=== PATIENT | female | born 1960 | race Caucasian/White ===

== ENCOUNTER → 2022-11-08 | Outpatient (CLI) | payer BC ==
--- NOTE | 2022-11-08 08:34 | MM ---
Reason for Exam: Screening (asymptomatic). Patient History: Menarche at age 15. First Full-Term at age 23. Postmenopausal. Mother had breast cancer, age 55. Risk Values: Bronwyn 5 year model risk: 2.7%. NCI Lifetime model risk: 11.8%. Prior Study Comparison: No prior studies available for comparison. Tissue Density: The breast tissue is heterogeneously dense. This may lower the sensitivity of mammography. Findings: Analyzed By CAD. 1.3 cm spiculated mass upper outer left breast 7.4 cm from the nipple is felt to reflect malignancy until proven otherwise. There may be a smaller adjacent lesion 7.7 cm from the nipple. Additional views and ultrasound recommended. Nodular density upper outer right breast 7.9 cm from the nipple requires additional evaluation as well. Overall Assessment: Incomplete: need additional imaging evaluation, BI-RAD 0 Management: Diagnostic Mammogram of both breasts. A clinical breast exam by your physician is recommended on an annual basis and results should be correlated with mammographic findings. Electronically signed and approved by: Clark Zuleta M.D. Radiologis
== END | disposition home or self-care (01) ==
LOC: RADMAMWWP 07:03
PROVIDERS: ATTEND Family Medicine
DX: Z12.31 Encounter for screening mammogram for malignant neoplasm of breast (principal); Z78.0 Asymptomatic menopausal state; Z80.3 Family history of malignant neoplasm of breast
CPT/HCPCS: 77067

== ENCOUNTER → 2022-11-15 | Outpatient (CLI) | payer BC ==
--- NOTE | 2022-11-15 07:59 | MM ---
Reason for Exam: Additional evaluation requested from abnormal screening. Last screening mammogram was performed less than 1 month ago. Patient History: Menarche at age 15. First Full-Term at age 23. Postmenopausal. Patient has history of breast feeding. Mother had breast cancer, age 55. Risk Values: Bronwyn 5 year model risk: 2.7%. NCI Lifetime model risk: 11.8%. Prior Study Comparison: 11/08/2022 Bilateral MG screening mammo w CAD, [facility]. Tissue Density: The breast tissue is heterogeneously dense. This may lower the sensitivity of mammography. Findings: Analyzed By CAD. Areas of concern do not go completely away on the additional views. Prominent asymmetric density subareolar region right breast also noted. Overall Assessment: Incomplete: need additional imaging evaluation, BI-RAD 0 Management: Diagnostic Breast Ultrasound of both breasts. Bilateral breast ultrasound. Electronically signed and approved by: Iraj Alves M.D.
--- NOTE | 2022-11-15 08:27 | USB ---
Reason for Exam: Additional evaluation requested from abnormal screening. Patient History: Menarche at age 15. First Full-Term at age 23. Postmenopausal. Patient has history of breast feeding. Mother had breast cancer, age 55. Risk Values: Bronwyn 5 year model risk: 2.7%. NCI Lifetime model risk: 11.8%. Technique: Method: Targeted. Prior Study Comparison: 11/08/2022 Bilateral MG screening mammo w CAD, [facility]. Findings: The upper outer quadrant of both breasts, the axilla of both breasts and the retroareolar of both breasts were scanned. Right breast shows a 6 x 4 x 5 mm thin-walled cyst 10:00 position 7 cm distance from nipple at the area of mammogram concern. Prominent ducts are seen at level of the nipple corresponding to mammogram. Right axilla shows no suspicious abnormality. Left breast shows 2 irregular heterogeneous hypoechoic areas one at 2:00 position measuring 1.1 x 1.7 cm with posterior shadowing and ill-defined borders with superficial vascularity 7 cm distance from nipple and near this level similar irregular heterogeneous hypoechoic area or lesion measuring 1.8 x 1.6 cm with posterior shadowing and superficial vascularity at 3:00 position 7 cm distance from nipple. These lesions are in close proximity on image 2829 and may be one single larger lesion. Subcentimeter lymph node in the left axilla shows eccentric cortical thickening over 3 mm making suspicious. Overall Assessment: Suspicious, BI-RAD 4 Management: Ultrasound Core Biopsy of the left breast. Ultrasound-guided biopsy. Results were given to the patient verbally at the time of exam. Electronically signed and approved by: Iraj Alves M.D.
== END | disposition home or self-care (01) ==
LOC: RADMAMWWP 06:47
PROVIDERS: ATTEND Family Medicine
DX: R92.8 Other abnormal and inconclusive findings on diagnostic imaging of breast (principal); Z78.0 Asymptomatic menopausal state; Z80.3 Family history of malignant neoplasm of breast
CPT/HCPCS: 77066

== ENCOUNTER → 2022-11-25 | Day surgery (SDC) | payer BC ==
--- NOTE | 2022-12-02 13:11 | MM ---
Reason for Exam: Post Procedure Mammogram. Last screening mammogram was performed less than 1 month ago. Patient History: Menarche at age 15. First Full-Term at age 23. Postmenopausal. Patient has history of breast feeding. Mother had breast cancer, age 55. Risk Values: Bronwyn 5 year model risk: 2.7%. NCI Lifetime model risk: 11.8%. Prior Study Comparison: 11/08/2022 Bilateral MG screening mammo w CAD, [facility]. 11/15/2022 Bilateral MG work up mamm w CAD BILAT, [facility]. 11/15/2022 Bilateral US breast workup limited [facility]. Tissue Density: Left: The breast tissue is heterogeneously dense. This may lower the sensitivity of mammography. Pathology Description: Location: axilla. Marker Left Behind. Needle Type: Bard 14g x 10cm Cores: 2 Gauge: 14 Pathology Description: Location: 3 o'clock. Marker Left Behind. Needle Type: Celero Cores: 2 Gauge: 12 Pathology Description: Location: 2 o'clock. Marker Left Behind. Needle Type: Celero Cores: 2 Gauge: 12 The procedure of ultrasound guided core biopsy was explained to the patient. Benefits, alternatives, and risks were discussed. An informed consent was then obtained. The patient was placed in supine positioning for imaging and for the procedure. Preprocedure ultrasound redemonstrates vague irregular hypoechoic shadowing mass at 2:00 position 7 cm distance from nipple and a larger heterogeneous hypoechoic irregular shadowing mass near this level at 3:00 position along with subcentimeter lymph node in the left axilla with perhaps slight eccentric cortical thickening. The overlying skin was prepped and draped in usual sterile fashion. Lidocaine is used as anesthetic into the skin and subcutaneous tissue. Lidocaine with epinephrine is used as anesthetic into the deeper tissue up to areas of concern in the left breast. Under ultrasound guidance, a vacuum assisted biopsy gun device was used to obtain 2 core samples in the 2:00 and 3:00 lesions. Following this, a biopsy clip was left in each lesion. Under ultrasound guidance, a 14-gauge Bard device was used to obtain 2 core samples in the slightly suspicious left axillary lymph node. Following this a biopsy clip was left in the sampled left axillary lymph node. The patient tolerated the procedure well without any immediate complication. The patient was kept in the radiology department for short stay after the procedure and then discharged home in stable condition. Postprocedure mammogram: The patient was transferred to mammography for physician ordered post procedure mammogram for clip placement verification. All 3 clips are successfully deployed seen on the true lateral view. The 2 lesions at 2:00 and 3:00 position are within 1.4 cm of each other suggesting they are likely one larger lesion. This was suspected prior to procedure but unable to definitively show connection via ultrasound. Impression: Successful, uncomplicated ultrasound guided core biopsy of 3 areas of concern in the left breast, full pathology results to follow. High index of suspicion noted at time of procedure. Pathology Results: Result: Malignant, Invasive ductal carcinoma. A. LEFT BREAST, 2:00, ULTRASOUND GUIDED NEEDLE CORE BIOPSY: Invasive well differentiated ductal carcinoma (grade 1). See Surgical Pathology Cancer Case Summary and Comment. B. LEFT BREAST, 3:00, ULTRASOUND GUIDED NEEDLE CORE BIOPSY: Invasive well differentiated ductal carcinoma (grade 1). See Surgical Pathology Cancer Case Summary and Comment. C. LEFT AXILLA, CORE BIOPSY: Lymph node positive for metastatic ductal breast carcinoma. See Comment. Overall Assessment: Malignant Assessment: MG diagnostic mammo LT wo CAD. - Left: Known biopsy proven malignancy, BI-RAD 6. Management: Surgical Consultation of the left breast. Electronically signed and approved by: Iraj Alves M.D.
== END ==
LOC: RADUSWWP 12:31
PROVIDERS: ATTEND Family Medicine
DX: R92.8 Other abnormal and inconclusive findings on diagnostic imaging of breast (principal)
CPT/HCPCS: 88305; 88342; 88341; 77065; 19083; 19084; A4648